=== PATIENT | female | born 1965 | race Caucasian/White ===

== ENCOUNTER 2017-12-23 17:57 | Emergency (ER) | payer SELFPAY ==
[~2017-12-23] VITALS: Ht 162.6 cm; Wt 100.0 kg
[2017-12-23 18:22] VITALS: Ht 162.6 cm; Wt 100.0 kg
[2017-12-23 18:54] LABS: BASOPHILS 0.4 % (0-2); EOSINOPHILS 4.7 % (0-7); HEMATOCRIT 37.3 % (36.0-48.0); HEMOGLOBIN 12.4 g/dL (12-16); IMMATURE GRANULOCYTES 0.1 % (0-5); LYMPHOCYTES 22.3 % (15-50); MCHC 33.2 g/dL (31.0-37.0); MCV 90.3 fL (80.0-100.0); MEAN PLATELET VOLUME 11.5 fL (7.4-10.4); NEUTROPHILS 66.5 % (40-80); PLATELET COUNT 189 10x3/uL (130-400); RBC 4.13 10x6/uL (4.00-5.40); WBC 8.6 10x3/uL (4.8-10.8)
[2017-12-23 19:06] LABS: APTT 25.4 SECONDS (22.8-39.4); INR 0.95 (0.85-1.17); PROTIME 12.3 SECONDS (11.6-15.0)
[2017-12-23 20:02] LABS: APPEARANCE CLEAR (CLEAR); BILIRUBIN NEGATIVE (NEGATIVE); COLOR YELLOW (YELLOW); GLUCOSE NEGATIVE (NEGATIVE); KETONE NEGATIVE (NEGATIVE); NITRITE NEGATIVE (NEGATIVE); PROTEIN NEGATIVE (NEGATIVE); UROBILINOGEN NORMAL (NORMAL)
[2017-12-23 20:04] LABS: WHITE CELLS - URINE 0-5 /hpf (0-5)
[2017-12-23 20:05] LABS: BACTERIA FEW /hpf (NONE SEEN); EPITHELIAL CELLS 0-5 /hpf (0-5)
[2017-12-23 20:09] LABS: ALBUMIN 3.5 g/dL (3.4-5.0); ALKALINE PHOSPHATASE 73 U/L (46-116); ALT (SGPT) 22 U/L (10-68); BILIRUBIN - TOTAL 0.52 mg/dL (0.2-1.3); CALC OSMOLALITY 283 mosm/kg (275-300); CALCIUM 8.3 mg/dL (8.5-10.1); CARBON DIOXIDE 27.7 mmol/L (21.0-32.0); CHLORIDE - SERUM 105 mmol/L (98-107); GLUCOSE 95 mg/dL (74-106); POTASSIUM - SERUM 3.7 mmol/L (3.5-5.1); PROTEIN - SERUM 6.9 g/dL (6.4-8.2); SODIUM 141 mmol/L (136-145); UREA NITROGEN 21 mg/dL (7-18); eGFR NON AFRICAN AMERICAN 62 mL/min (90-120)
[2017-12-23 20:23] LABS: CKMB 1.2 U/L (0.0-3.6); CREATINE KINASE 91 UL (21-215); PRO BNP 110 pg/mL (0-125); TROPONIN-I < 0.017 ng/mL (0.000-0.060)
[2017-12-23 21:44] VITALS: BP 115/72
== END 2017-12-23 21:44 | disposition home or self-care (01) ==
LOC: D.ER 17:57
PROVIDERS: Emergency Medicine
DX: R07.9 Chest pain, unspecified (principal)